=== PATIENT | male | born 1990 | race Caucasian/White ===

== ENCOUNTER 2018-07-22 10:06 | Emergency (ER) | payer MEDICAID ==
[2018-07-22] MEDS: NAPROXEN 500 MG TAB PO (10:41)
== END 2018-07-22 11:22 | disposition home or self-care (01) ==
LOC: FTE 10:06
DX: M54.31 Sciatica, right side (principal)
CPT/HCPCS: 99283; Z7502

== ENCOUNTER 2019-01-16 21:42 | Emergency (ER) | payer MEDICAID ==
[2019-01-17] MEDS ORDERED: ONDANSETRON (1 MG/1.25 ML PO SYG) PO (02:28)
[2019-01-17] MEDS: COLCHICINE 0.6 MG TAB PO ×2 (03:14→04:20)
[2019-01-17] MEDS: morphine 4 MG/ML VIAL IM (03:15)
[2019-01-17 03:23] LABS: ADD MAN DIFF? NO
[2019-01-17 03:26] LABS: BASOPHIL # 0.1 10^3/ul (0.0-0.1); BASOPHILS % 0.6 % (0.0-2.0); EOSINOPHILS # 0.1 10^3/ul (0.0-0.5); EOSINOPHILS % 0.5 % (0.0-7.0); HEMOGLOBIN 14.5 g/dl (14.0-18.0); LYMPHOCYTES # 2.3 10^3/ul (0.8-2.9); LYMPHOCYTES % 22.8 % (15.0-51.0); MEAN CORPUSCULAR HEMOGLOBIN 29.5 pg (29.0-33.0); MEAN CORPUSCULAR VOLUME 89.6 fl (82.0-101.0); MONOCYTE # 0.8 10^3/ul (0.3-0.9); MONOCYTES % 8.3 % (0.0-11.0); NEUTROPHIL # 6.7 10^3/ul (1.6-7.5); NEUTROPHILS % 67.3 % (39.0-77.0); PLATELET COUNT 322 10^3/UL (140-415); RED BLOOD COUNT 4.91 10^6/ul (4.70-6.10); RED CELL DISTRIBUTION WIDTH 12.5 % (11.5-14.5)
[2019-01-17 03:46] LABS: ALANINE AMINOTRANSFERASE 95 IU/L (13-69); ALBUMIN 4.8 g/dl (3.3-4.9); ALBUMIN/GLOBULIN RATIO 1.33; ALKALINE PHOSPHATASE 82 IU/L (42-121); ANION GAP 9 (5-13); ASPARTATE AMINO TRANSFERASE 48 IU/L (15-46); BILIRUBIN,INDIRECT 0.5 mg/dl (0-1.1); BILIRUBIN,TOTAL 0.5 mg/dl (0.2-1.3); BLOOD UREA NITROGEN 15 mg/dl (7-20); C-REACTIVE PROTEIN 0.9 mg/dl (0.0-0.9); CALCIUM 10.3 mg/dl (8.4-10.2); CARBON DIOXIDE 28 mmol/L (21-31); CHLORIDE 106 mmol/L (97-110); Estimated GFR > 60 mL/min (>60); GLUCOSE 102 mg/dl (70-220); POTASSIUM 5.6 mmol/L (3.5-5.1); SODIUM 143 mmol/L (135-144); TOTAL PROTEIN 8.4 g/dl (6.1-8.1)
[2019-01-17 05:01] LABS: ERYTHROCYTE SEDIMENTATION RATE 25 mm/Hr (0-15)
== END 2019-01-17 06:44 | disposition home or self-care (01) ==
LOC: FTE 21:42
DX: M10.9 Gout, unspecified (principal)
CPT/HCPCS: 36415; 73610-RT; 73630; 80053; 84560; 85025; 85651; 86140; 93971; 96372; 99285-25